=== PATIENT | female | born 1995 | race African-American/Black ===

== ENCOUNTER 2021-07-26 22:00 | Emergency (ER) | payer OTHER, SELFPAY ==
[2021-07-26 22:47] VITALS: BP 116/77; PULSE 98; RESP 15; TEMP 36.1; O2SAT 97; BMI 32.3
[2021-07-26 23:09] LABS: Strep A Nucleic Acid Negative (Negative)
--- NOTE | 2021-07-26 23:18 | ED.URI ---
HPI - URI/Sore Throat General Chief Complaint: Upper Respiratory Symptoms Stated Complaint: sore throat, sob Time Seen by Provider: 07/26/21 23:18 Source: patient Mode of arrival: ambulatory Limitations: no limitations History of Present Illness HPI Narrative: patient with sore throat yesterday but problems breathing today. Now with cough. patient is not vaccinated, no exposure that she knows of. No history of asthma. MD elicited complaint: cough and sore throat Onset (ago): day(s) Consistency: constant Severity: mild Able to tolerate fluids by mouth: Yes Exacerbating factors: nothing Relieving factors: nothing Related Data Allergies Allergy/AdvReac Type Severity Reaction Status Date / Time No Known Allergies Allergy Unverified 06/30/20 17:44 Review of Systems Constitutional: Constitutional: Reports no additional constitutional complaints Eyes: Eyes: Reports no additional eye complaints ENT: Denies dizziness Cardiovascular: Cardiovascular: Reports no additional cardiovascular complaints Respiratory: Respiratory: Reports as per HPI Gastrointestinal: Gastrointestinal: Reports no additional gastrointestinal complaints Genitourinary: Genitourinary: Reports no additional female genitourinary complaints Musculoskeletal: Musculoskeletal: Reports no additional musculoskeletal complaints Integumentary/Breasts: Skin/Breast: Denies rash Neurologic: Reports system reviewed and no additional complaints, except as documented, Denies dizziness and Denies Sensory deficit (Neuro) Psychiatric: Psychiatric: Denies anxiety PMFSH Past Medical History Medical History No known health problems Surgical History No history of previous surgery Social History Social History Advance Directives: No Patient : No Physical Exam Vital Signs: Vital Signs: Last Vital Signs Temp 97 F 07/26/21 22:47 Pulse 98 07/26/21 22:47 Resp 15 07/26/21 22:47 BP 116/77 07/26/21 22:47 Pulse Ox 97 07/26/21 22:47 Body Mass Index 32.3 Const: General: healthy appearing Nutritional Appearance: average body habitus Orientation/consciousness: oriented to person and patient oriented x3 Limitations: no limitations HENMT: Other: TMs normal, pharynx with slight erythema, no exudates Head: Yes normal to inspection Ears: external ears normal General nose exam: Normal external nose present Mouth: Normal oral and palatal mucosa present Throat: Yes posterior oropharynx normal Eyes: General: appearance normal, both eyes and all related structures Neck: Other: supple Neck: Yes normal visual inspection Chest: Chest palpation & inspection: normal inspection of the chest Resp: Auscultation: clear to auscultation bilaterally Cardio: Jugular venous distension: no JVD Rate: regular rate Rhythm: regular rhythm Heart sounds: S1 normal heart sound present and S2 normal heart sound present GI: Inspection: Yes normal to inspection Palpation (GI): Soft to palpation, nontender and No hepatosplenomegaly present Auscultation: normal bowel sounds : General: Yes no CVA tenderness Back/Spine/Pelvis: Back: no CVA tenderness Skin: General skin exam: no rashes or lesions noted Neuro: General: oriented to person and patient oriented x3 Cranial nerves: Yes CN's II-XII intact bilaterally Motor exam (neuro): 5/5 motor strength present throughout Sensory Exam: No Sensory deficit (Neuro) Extrem: General: Yes normal to inspection Psych: Appearance: grossly normal Course Reevaluation(s) Reevaluation #1: patient well appearing, has a cough and URI, COVID negative for now, rapid strep negative will dc home Time: 00:02 MDM - URI/Sore Throat Lab Data Labs: Lab Results 07/26/21 07/26/21 Range/Units 22:58 22:58 COVID-19 (JOHN) Negative (Negative) COVID-19 Clin Com See Note S. pyogenes GrpA DARWIN Negative (Negative) Discharge Plan Discharge Clinical Impression: Upper respiratory infection Qualifiers: URI type: unspecified viral URI Qualified Code(s): J06.9 - Acute upper respiratory infection, unspecified Patient Disposition: Home, Self-Care Instructions: Upper Respiratory Infection (ED), Viral Syndrome (ED) Referrals: Regi Jackson [Emergency Nurse] - 5 days
[2021-07-26 23:23] LABS: COVID-19 Test Negative (Negative); IDNOW Serial# 9DD0AD1C
== END 2021-07-27 00:27 | disposition home or self-care (01) ==
PROVIDERS: Emergency Provider Emergency Medicine
DX: J06.9 Acute upper respiratory infection, unspecified (principal); Z20.822 Contact with and (suspected) exposure to COVID-19
CPT/HCPCS: 36415; 87635; 87651; 99283

== ENCOUNTER 2023-01-03 20:28 | Emergency (ER) | payer OTHER, SELFPAY ==
--- NOTE | ~2023-01-03 | XR_ITS ---
EXAMINATION: XR CHEST CLINICAL INFORMATION: Overdose COMPARISON: None available. TECHNIQUE: Frontal view of the chest was obtained. FINDINGS: No significant abnormality is noted involving the heart, lungs, mediastinum, bony thorax or soft tissues. XR/XR chest 1V IMPRESSION: Unremarkable examination.
[2023-01-03 20:38] VITALS: BP 130/86; PULSE 90; O2SAT 100; BMI 33.9
[2023-01-03 20:40] VITALS: BP 110/78; PULSE 78; RESP 16; TEMP 37.1; O2SAT 98
--- NOTE | 2023-01-03 20:57 | ECG_ITS ---
Test Reason : OVERDOSED Blood Pressure : / mmHG Vent. Rate : 076 BPM Atrial Rate : 076 BPM P-R Int : 134 ms QRS Dur : 084 ms QT Int : 372 ms P-R-T Axes : 002 052 043 degrees QTc Int : 418 ms Normal sinus rhythm Normal ECG No previous ECGs available Referred By: Maria A Morrow Electronically Signed By:JALEN JENKINS MD
[2023-01-03 20:59] LABS: MANUAL DIFF FLAG NO
[2023-01-03 21:00] LABS: Basophils Absolute Auto 0.1 X10*3/uL (0.0-0.2); Basophils Percent Auto 1.4 % (0-2); Eosinophils Absolute Auto 0.1 X10*3/uL (0.0-0.4); Eosinophils Percent Auto 2.1 % (0-4); Hematocrit 42.7 % (37.0-47.0); Imm Gran Abs Auto 0.02 X10*3/uL (0.00-0.03); Imm Gran Pct Auto 0.3 % (0.0-0.4); Lymphocytes Absolute Auto 1.6 X10*3/uL (1.2-4.9); Lymphocytes Percent Auto 24.7 % (20-40); Mean Corpuscular HGB Conc 32.8 g/dl (31.0-35.0); Mean Corpuscular Volume 82.3 fL (80.0-98.0); Mean Platelet Volume 10.7 fL (9.4-12.3); Monocytes Absolute Auto 0.4 X10*3/uL (0.1-1.2); Monocytes Percent Auto 6.7 % (2-11); Neutrophils Absolute Auto 4.3 x10*3/uL (2.0-8.3); Neutrophils Percent Auto 64.8 % (45-73); Platelet Count 247 X10*3/uL (160-400); Red Blood Count 5.19 X10*6/uL (4.20-5.50); Red Cell Distribution Width 14.1 % (11.0-16.0); White Blood Count 6.6 X10*3/uL (4.8-10.8)
--- NOTE | 2023-01-03 21:03 | ED.OVERDOSE ---
HPI - Overdose General Chief Complaint: Overdose <Maria A Morrow NP - Last Filed: 01/04/23 03:05> Stated Complaint: SI Consumed 25 Advil's <Maria A Morrow NP - Last Filed: 01/04/23 03:05> Time Seen by Provider: 01/03/23 20:54 <Maria A Morrow NP - Last Filed: 01/04/23 03:05> Source: patient and EMS <Maria A Morrow NP - Last Filed: 01/04/23 03:05> Mode of arrival: EMS <Maria A Morrow NP - Last Filed: 01/04/23 03:05> Limitations: no limitations <Maria A Morrow NP - Last Filed: 01/04/23 03:05> History of Present Illness HPI Narrative: 27-year-old female presents via EMS for intentional Motrin overdose. Patient states that she took 24 tablets of Advil. <Maria A Morrow NP - Last Filed: 01/04/23 03:05> MD complaint: intentional overdose <Maria A Morrow NP - Last Filed: 01/04/23 03:05> Onset (ago): hour(s) (30 minutes prior to arrival) <Maria A Morrow NP - Last Filed: 01/04/23 03:05> Intent: suicide attempt <Maria A Morrow NP - Last Filed: 01/04/23 03:05> How Overdose Was Discovered: called 911 <Maria A Morrow NP - Last Filed: 01/04/23 03:05> Context: Intentional Overdose: relationship problems and other ( depression) <Maria A Morrow NP - Last Filed: 01/04/23 03:05> Associated symptoms: depression <Maria A Morrow NP - Last Filed: 01/04/23 03:05> Treatments Prior to Arrival: none <Maria A Morrow NP - Last Filed: 01/04/23 03:05> Related Data Home Medications: Previous Rx's Medication Instructions Recorded oxcarbazepine 300 mg tablet 300 mg PO BID #60 tabs 01/04/23 (Trileptal) propranolol 10 mg tablet 10 mg PO TID #45 tabs 01/04/23 <Maria A Morrow NP - Last Filed: 01/04/23 03:05> Allergies/Adverse Reactions: Allergies Allergy/AdvReac Type Severity Reaction Status Date / Time No Known Allergies Allergy Unverified 06/30/20 17:44 <Maria A Morrow NP - Last Filed: 01/04/23 03:05> Review of Systems Review of Systems: Constitutional: No Fever, No Chills Cardiovascular: No Chest Pain, No SOB Respiratory: No Cough, No Dyspnea Gastrointestinal: No Nausea, No Vomiting, No Diarrhea, positive abdominal Pain Genitourinary: No Dysuria, No Hematuria Musculoskeletal: No joint pain, No Myalgias, No Joint Swelling Skin: No Skin lacerations, No rash Neuro: No Weakness, No Numbness, No Paresthesias, No Loss of Consciousness, No Dizziness, No Headache Psych: Positive Anxiety positive SI, positive suicidal attempt, positive Depression <Maria A Morrow NP - Last Filed: 01/04/23 03:05> Yes all other systems are reviewed and are negative <Maria A Morrow NP - Last Filed: 01/04/23 03:05> [facility] Past Medical History Attestation statement: The following information was validated with the patient. <Maria A Morrow NP - Last Filed: 01/04/23 03:05> Source: old records reviewed <Maria A Morrow NP - Last Filed: 01/04/23 03:05> Medical History: Medical History No known health problems <Maria A Morrow NP - Last Filed: 01/04/23 03:05> Surgical History: Surgical History No history of previous surgery <Maria A Morrow NP - Last Filed: 01/04/23 03:05> Social History Social History: Social History Alcohol intake: never Smoked in Last 30 Days: Yes Use of substances other than those prescribed or required for medical reasons: Yes Substance Use Type: Marijuana Advance Directives: No Advance Directives Information Provided: No Healthcare Proxy: No Guardian: No Patient : No <Maria A Morrow NP - Last Filed: 01/04/23 03:05> Physical Exam Vital Signs: Vital Signs: Last Vital Signs Temp 97.7 F 01/04/23 14:11 Pulse 74 01/04/23 14:11 Resp 16 01/04/23 14:11 BP 117/84 01/04/23 14:11 Pulse Ox 99 01/04/23 14:11 O2 Del Method Room Air 01/04/23 14:11 BMI result Body Mass Index 33.9 <Maria A Morrow NP - Last Filed: 01/04/23 03:05> Vital Signs: Last Vital Signs Temp 97.7 F 01/04/23 14:11 Pulse 74 01/04/23 14:11 Resp 16 01/04/23 14:11 BP 117/84 01/04/23 14:11 Pulse Ox 99 01/04/23 14:11 O2 Del Method Room Air 01/04/23 14:11 BMI result Body Mass Index 33.9 <Natalee Burns MD - Last Filed: 01/04/23 17:58> Appearance: Alert. Oriented X3. Moderate emotional distress. Eyes: Pupils equal, round and reactive to light. Sclera nonicteric. ENT: Pharynx normal. Neck: Normal inspection. Neck supple. CVS: Normal heart rate and rhythm. Pulses normal. Respiratory: No respiratory distress. Breath sounds normal. Abdomen: Soft and nontender. Skin: Skin warm and dry. Normal skin color. Normal skin turgor. Extremities: Gait well balanced well coordinated. Neuro: No motor deficit. No sensory deficit cranial nerves 2-12 intact. <Maria A Morrow NP - Last Filed: 01/04/23 03:05> Course Course Course Narrative: 27-year-old female presents via EMS for ingesting 24 tablets of 200 mg of Advil. Patient states this is suicide attempt as she is suffering from depression, has had significant relationship problems, and unable to deal with the stressors of her life at this time. Patient will not get into detail and is in emotional distress. At this time considering that patient's ingestion was less than 30 minutes prior to arrival, plan is for charcoal, Pepcid, IV fluids, one-to-one monitoring, and guidance from poison Control. 23:00 patient alert oriented x4, answering questions politely and appropriately, patient vomiting from activated charcoal ingestion. Midnight patient continues to be alert oriented x4, even unlabored respirations. Patient will be medically cleared after repeat lab draws 00:45 Labs are unremarkable, positive for marijuana. Vital signs are stable and within normal limits, even unlabored respirations. Patient is alert oriented x4, answering questions appropriately. Patient medically cleared, transported to the pod. 02:18 patient is a Section 12 bed search, crisis consult complete. Physician observation at this time <Maria A Morrow NP - Last Filed: 01/04/23 03:05> Reevaluation(s) Reevaluation #1: Continue physician observation, no acute events overnight, no medications to reconcile, patient is a Section 12 inpatient bed search. <Natalee Burns MD - Last Filed: 01/04/23 17:58> Time: 06:41 <Natalee Burns MD - Last Filed: 01/04/23 17:58> Reevaluation #2: 1645: I was informed by the nursing staff earlier that psychiatry had evaluated the patient and informed the patient that she would be able to be discharged today. I informed the nursing staff as well as Psychiatry that I do not agree with this assessment given the labile behavior of the patient when she was screaming and banging on the door just prior to the evaluation by Psychiatry. I certainly agree with initiating medication for the patient but I am concerned that 1 of the primary support systems mentioned by Psychiatry, the patient's mother, was the trigger for the behavioral outburst earlier. In addition, patient has had remote history of suicide attempt, and was seen here today for intentional overdose. The psychiatry team was generous enough to discuss the case further with me and they do agree with the concerns that I mentioned and also discussed with them my concerns regarding open discourse regarding disposition plans. At this time, Dr. Patrick has offered to put in place additional check systems and does feel that this patient is a safe discharge and has said that he will write a note further endorsing the discharge of this patient and at this time I a.m. in agreement with the proposed discharge. Additional phone calls over the weekend are being arranged for and there is PHP set up, according to Psychiatry the mother has stated that she will offer more support to the patient as she is currently overwhelmed with caring for her 2-year-old. <Natalee Burns MD - Last Filed: 01/04/23 17:58> Time: 17:48 <Natalee Burns MD - Last Filed: 01/04/23 17:58> Medications Administered Generic Name Dose Route Start Last Admin Trade Name Reddq PRN Reason Stop Dose Admin Oxcarbazepine 300 mg 01/04/23 12:55 01/04/23 14:09 Oxcarbazepine 300 Mg Tablet PO 300 mg BID MCKENNA Administration Propranolol HCl 10 mg 01/04/23 12:55 01/04/23 14:09 Propranolol Hcl 10 Mg Tablet PO 10 mg TID MCKENNA Administration Protocol Discontinued Medications Generic Name Dose Route Start Last Admin Trade Name Reddq PRN Reason Stop Dose Admin Charcoal 25 gm 01/03/23 20:57 01/03/23 21:14 Activated Charcoal 25 Gm/120 Ml Oral.Susp PO 01/03/23 20:58 25 gm ONCE ONE Administration Diphenhydramine HCl 50 mg 01/04/23 11:24 01/04/23 12:11 Diphenhydramine Hcl 50 Mg/Ml Vial IM 01/04/23 11:25 Not Given ONCE ONE Haloperidol Lactate 5 mg 01/04/23 11:24 01/04/23 12:11 Haloperidol Lactate 5 Mg/Ml Vial IM 01/04/23 11:25 Not Given ONCE ONE Sodium Chloride 1,000 mls @ 999 mls/hr 01/03/23 21:00 01/03/23 22:27 Ns IVCONT 01/03/23 22:00 Infused .Q1H1M MCKENNA Infusion Lorazepam 2 mg 01/04/23 02:27 01/04/23 02:35 Lorazepam 1 Mg Tablet PO 01/04/23 02:28 2 mg ONCE ONE Administration Lorazepam 2 mg 01/04/23 11:23 01/04/23 12:24 Lorazepam 1 Mg Tablet PO 01/04/23 11:24 Not Given ONCE ONE Lorazepam 2 mg 01/04/23 11:24 01/04/23 12:11 Lorazepam 2 Mg/Ml Vial IM 01/04/23 11:25 Not Given ONCE ONE Pantoprazole Sodium 40 mg 01/03/23 21:04 01/03/23 21:22 Pantoprazole Sodium 40 Mg/10 Ml Vial IVPUSH 01/03/23 21:05 40 mg ONCE ONE Administration <Maria A Morrow NP - Last Filed: 01/04/23 03:05> Medications Administered Generic Name Dose Route Start Last Admin Trade Name Karan PRN Reason Stop Dose Admin Oxcarbazepine 300 mg 01/04/23 12:55 01/04/23 14:09 Oxcarbazepine 300 Mg Tablet PO 300 mg BID MCKENNA Administration Propranolol HCl 10 mg 01/04/23 12:55 01/04/23 14:09 Propranolol Hcl 10 Mg Tablet PO 10 mg TID MCKENNA Administration Protocol Discontinued Medications Generic Name Dose Route Start Last Admin Trade Name Karan PRN Reason Stop Dose Admin Charcoal 25 gm 01/03/23 20:57 01/03/23 21:14 Activated Charcoal 25 Gm/120 Ml Oral.Susp PO 01/03/23 20:58 25 gm ONCE ONE Administration Diphenhydramine HCl 50 mg 01/04/23 11:24 01/04/23 12:11 Diphenhydramine Hcl 50 Mg/Ml Vial IM 01/04/23 11:25 Not Given ONCE ONE Haloperidol Lactate 5 mg 01/04/23 11:24 01/04/23 12:11 Haloperidol Lactate 5 Mg/Ml Vial IM 01/04/23 11:25 Not Given ONCE ONE Sodium Chloride 1,000 mls @ 999 mls/hr 01/03/23 21:00 01/03/23 22:27 Ns IVCONT 01/03/23 22:00 Infused .Q1H1M MCKENNA Infusion Lorazepam 2 mg 01/04/23 02:27 01/04/23 02:35 Lorazepam 1 Mg Tablet PO 01/04/23 02:28 2 mg ONCE ONE Administration Lorazepam 2 mg 01/04/23 11:23 01/04/23 12:24 Lorazepam 1 Mg Tablet PO 01/04/23 11:24 Not Given ONCE ONE Lorazepam 2 mg 01/04/23 11:24 01/04/23 12:11 Lorazepam 2 Mg/Ml Vial IM 01/04/23 11:25 Not Given ONCE ONE Pantoprazole Sodium 40 mg 01/03/23 21:04 01/03/23 21:22 Pantoprazole Sodium 40 Mg/10 Ml Vial IVPUSH 01/03/23 21:05 40 mg ONCE ONE Administration <Natalee Burns MD - Last Filed: 01/04/23 17:58> Medical Decision Making Differential Diagnosis Differential Diagnoses: The differential diagnosis associated with the presentation includes <Maria A Morrow NP - Last Filed: 01/04/23 03:05> Overdose suicidal attempt, depression, depression <Maria A Morrow NP - Last Filed: 01/04/23 03:05> Admission/Observation Consideration of admission/observation: Escalation of care including admission/observation considered <Maria A Morrow NP - Last Filed: 01/04/23 03:05> Patient will require admission <Maria A Morrow NP - Last Filed: 01/04/23 03:05> Consult Healthcare Provider Management of the patient was discussed with: Behavioral Health Provider <Maria A Morrow NP - Last Filed: 01/04/23 03:05> Lab Data MDM Lab Attestation statement: I reviewed the patient's lab results. <Maria A Morrow NP - Last Filed: 01/04/23 03:05> Result Diagrams: 01/03/23 20:54 01/03/23 20:54 <Maria A Morrow NP - Last Filed: 01/04/23 03:05> Labs: Lab Results 01/03/23 01/03/23 01/03/23 Range/Units 20:54 20:54 21:12 WBC 6.6 6.9 (4.8-10.8) X10*3/uL RBC 5.19 5.29 (4.20-5.50) X10*6/uL Hgb 14.0 14.3 (12.0-16.0) g/dl Hct 42.7 43.3 (37.0-47.0) % MCV 82.3 81.9 (80.0-98.0) fL MCH 27.0 27.0 (27.0-33.0) pg MCHC 32.8 33.0 (31.0-35.0) g/dl RDW 14.1 14.2 (11.0-16.0) % Plt Count 247 269 (160-400) X10*3/uL MPV 10.7 11.2 (9.4-12.3) fL Immature Gran % (Auto) 0.3 0.1 (0.0-0.4) % Neut % (Auto) 64.8 65.1 (45-73) % Lymph % (Auto) 24.7 24.9 (20-40) % [place] % (Auto) 6.7 6.0 (2-11) % Eos % (Auto) 2.1 2.2 (0-4) % Baso % (Auto) 1.4 1.7 (0-2) % Lymph # (Auto) 1.6 1.7 (1.2-4.9) X10*3/uL [place] # (Auto) 0.4 0.4 (0.1-1.2) X10*3/uL Eos # (Auto) 0.1 0.2 (0.0-0.4) X10*3/uL Baso # (Auto) 0.1 0.1 (0.0-0.2) X10*3/uL Abs Immat Gran (auto) 0.02 0.01 (0.00-0.03) X10*3/uL Absolute Neuts (auto) 4.3 4.5 (2.0-8.3) x10*3/uL Absolute Nucleated RBC 0.000 0.000 (0.0-0.012) X10*3/uL Nucleated RBC % (auto) 0.0 0.0 (0.0-0.2) /100WBC PT (10.0-13.1) SEC INR (0.9-1.1) Sodium 141 (135-145) mmol/L Potassium 3.9 (3.3-5.1) mmol/L Chloride 109 H (96-108) mmol/L Carbon Dioxide 22 (22-29) mmol/L Anion Gap 14 (12-20) BUN 10 (9-16) mg/dL Creatinine 0.87 (0.5-1.4) mg/dL Estim Creat Clear Calc 114.9 Estimated GFR > 60 Random Glucose (60-115) mg/dL Fasting Glucose 98 (60-99) mg/dL Calcium 9.1 (8.4-10.2) mg/dL Magnesium (1.6-2.6) mg/dL Total Bilirubin 0.3 (0.0-1.0) mg/dL Direct Bilirubin (0.0-0.5) mg/dL AST 18 (5-31) U/L ALT 11 (0-31) U/L Alkaline Phosphatase 62 (39-117) U/L Troponin I High Sens (<3.5-17.0) ng/L Total Protein 6.7 (6.5-8.0) g/dL Albumin 4.4 (3.5-5.0) g/dL Lipase (8-78) U/L Urine Color Urine Appearance Urine pH (5.0-9.0) Ur Specific [place] (1.005-1.025) Urine Protein (Neg-Trace) mg/dL Urine Glucose (UA) (Negative) mg/dL Urine Ketones (Negative) mg/dL Urine Blood (Negative) Urine Nitrite (Negative) Ur Leukocyte Esterase (Negative) Urine RBC (0-2) /HPF Urine WBC (0-5) /HPF Ur Squamous Epith Cells (0-2) /HPF Urine Bacteria (None Seen) Hyaline Casts (0-2) /LPF Urine Test (NEGATIVE) Salicylates (15-30) mg/dL Urine Opiates Screen (Not Detect) Urine Fentanyl Screen (Not Detect) Acetaminophen < 17 (<30) mcg/mL Ur Barbiturates Screen (Not Detect) Ur Phencyclidine Scrn (Not Detect) Ur Amphetamines Screen (Not Detect) U Benzodiazepines Scrn (Not Detect) Urine Cocaine Screen (Not Detect) U Marijuana (THC) Screen (Not Detect) Ethyl Alcohol mg/dL Influenza Type A (PCR) (Negative) Influenza Type B (PCR) (Negative) RSV RNA Qual (PCR) (Negative) SARS-CoV-2 RNA (RT-PCR) (Negative) 01/03/23 01/03/23 01/03/23 Range/Units 21:12 21:12 21:12 WBC (4.8-10.8) X10*3/uL RBC (4.20-5.50) X10*6/uL Hgb (12.0-16.0) g/dl Hct (37.0-47.0) % MCV (80.0-98.0) fL MCH (27.0-33.0) pg MCHC (31.0-35.0) g/dl RDW (11.0-16.0) % Plt Count (160-400) X10*3/uL MPV (9.4-12.3) fL Immature Gran % (Auto) (0.0-0.4) % Neut % (Auto) (45-73) % Lymph % (Auto) (20-40) % [place] % (Auto) (2-11) % Eos % (Auto) (0-4) % Baso % (Auto) (0-2) % Lymph # (Auto) (1.2-4.9) X10*3/uL [place] # (Auto) (0.1-1.2) X10*3/uL Eos # (Auto) (0.0-0.4) X10*3/uL Baso # (Auto) (0.0-0.2) X10*3/uL Abs Immat Gran (auto) (0.00-0.03) X10*3/uL Absolute Neuts (auto) (2.0-8.3) x10*3/uL Absolute Nucleated RBC (0.0-0.012) X10*3/uL Nucleated RBC % (auto) (0.0-0.2) /100WBC PT 11.4 (10.0-13.1) SEC INR 1.0 (0.9-1.1) Sodium 141 (135-145) mmol/L Potassium 4.0 (3.3-5.1) mmol/L Chloride 108 (96-108) mmol/L Carbon Dioxide 23 (22-29) mmol/L Anion Gap 14 (12-20) BUN 10 (9-16) mg/dL Creatinine 0.90 (0.5-1.4) mg/dL Estim Creat Clear Calc 111.1 Estimated GFR > 60 Random Glucose 92 (60-115) mg/dL Fasting Glucose (60-99) mg/dL Calcium 9.2 (8.4-10.2) mg/dL Magnesium 2.0 (1.6-2.6) mg/dL Total Bilirubin 0.3 (0.0-1.0) mg/dL Direct Bilirubin < 0.2 (0.0-0.5) mg/dL AST 17 (5-31) U/L ALT 11 (0-31) U/L Alkaline Phosphatase 64 (39-117) U/L Troponin I High Sens < 3.5 (<3.5-17.0) ng/L Total Protein 6.8 (6.5-8.0) g/dL Albumin 4.5 (3.5-5.0) g/dL Lipase 57 (8-78) U/L Urine Color Urine Appearance Urine pH (5.0-9.0) Ur Specific [place] (1.005-1.025) Urine Protein (Neg-Trace) mg/dL Urine Glucose (UA) (Negative) mg/dL Urine Ketones (Negative) mg/dL Urine Blood (Negative) Urine Nitrite (Negative) Ur Leukocyte Esterase (Negative) Urine RBC (0-2) /HPF Urine WBC (0-5) /HPF Ur Squamous Epith Cells (0-2) /HPF Urine Bacteria (None Seen) Hyaline Casts (0-2) /LPF Urine Test (NEGATIVE) Salicylates < 5.0 L (15-30) mg/dL Urine Opiates Screen (Not Detect) Urine Fentanyl Screen (Not Detect) Acetaminophen < 17 (<30) mcg/mL Ur Barbiturates Screen (Not Detect) Ur Phencyclidine Scrn (Not Detect) Ur Amphetamines Screen (Not Detect) U Benzodiazepines Scrn (Not Detect) Urine Cocaine Screen (Not Detect) U Marijuana (THC) Screen (Not Detect) Ethyl Alcohol < 10 mg/dL Influenza Type A (PCR) (Negative) Influenza Type B (PCR) (Negative) RSV RNA Qual (PCR) (Negative) SARS-CoV-2 RNA (RT-PCR) (Negative) 01/03/23 01/03/23 01/03/23 Range/Units 21:12 22:46 22:46 WBC (4.8-10.8) X10*3/uL RBC (4.20-5.50) X10*6/uL Hgb (12.0-16.0) g/dl Hct (37.0-47.0) % MCV (80.0-98.0) fL MCH (27.0-33.0) pg MCHC (31.0-35.0) g/dl RDW (11.0-16.0) % Plt Count (160-400) X10*3/uL MPV (9.4-12.3) fL Immature Gran % (Auto) (0.0-0.4) % Neut % (Auto) (45-73) % Lymph % (Auto) (20-40) % [place] % (Auto) (2-11) % Eos % (Auto) (0-4) % Baso % (Auto) (0-2) % Lymph # (Auto) (1.2-4.9) X10*3/uL [place] # (Auto) (0.1-1.2) X10*3/uL Eos # (Auto) (0.0-0.4) X10*3/uL Baso # (Auto) (0.0-0.2) X10*3/uL Abs Immat Gran (auto) (0.00-0.03) X10*3/uL Absolute Neuts (auto) (2.0-8.3) x10*3/uL Absolute Nucleated RBC (0.0-0.012) X10*3/uL Nucleated RBC % (auto) (0.0-0.2) /100WBC PT (10.0-13.1) SEC INR (0.9-1.1) Sodium (135-145) mmol/L Potassium (3.3-5.1) mmol/L Chloride (96-108) mmol/L Carbon Dioxide (22-29) mmol/L Anion Gap (12-20) BUN (9-16) mg/dL Creatinine (0.5-1.4) mg/dL Estim Creat Clear Calc Estimated GFR Random Glucose (60-115) mg/dL Fasting Glucose (60-99) mg/dL Calcium (8.4-10.2) mg/dL Magnesium (1.6-2.6) mg/dL Total Bilirubin (0.0-1.0) mg/dL Direct Bilirubin (0.0-0.5) mg/dL AST (5-31) U/L ALT (0-31) U/L Alkaline Phosphatase (39-117) U/L Troponin I High Sens (<3.5-17.0) ng/L Total Protein (6.5-8.0) g/dL Albumin (3.5-5.0) g/dL Lipase (8-78) U/L Urine Color Red A Urine Appearance Clear Urine pH 6.0 (5.0-9.0) Ur Specific [place] <= 1.005 (1.005-1.025) Urine Protein Trace (Neg-Trace) mg/dL Urine Glucose (UA) Negative (Negative) mg/dL Urine Ketones Negative (Negative) mg/dL Urine Blood Large (3+) H (Negative) Urine Nitrite Negative (Negative) Ur Leukocyte Esterase Trace H (Negative) Urine RBC >20 H (0-2) /HPF Urine WBC 0-5 (0-5) /HPF Ur Squamous Epith Cells 3-5 (0-2) /HPF Urine Bacteria None Seen (None Seen) Hyaline Casts 0-2 (0-2) /LPF Urine Test (NEGATIVE) Salicylates (15-30) mg/dL Urine Opiates Screen Not Detected (Not Detect) Urine Fentanyl Screen Not Detected (Not Detect) Acetaminophen (<30) mcg/mL Ur Barbiturates Screen Not Detected (Not Detect) Ur Phencyclidine Scrn Not Detected (Not Detect) Ur Amphetamines Screen Not Detected (Not Detect) U Benzodiazepines Scrn Not Detected (Not Detect) Urine Cocaine Screen Not Detected (Not Detect) U Marijuana (THC) Screen POSITIVE H (Not Detect) Ethyl Alcohol mg/dL Influenza Type A (PCR) NEGATIVE (Negative) Influenza Type B (PCR) NEGATIVE (Negative) RSV RNA Qual (PCR) NEGATIVE (Negative) SARS-CoV-2 RNA (RT-PCR) NEGATIVE (Negative) 01/03/23 Range/Units 22:46 WBC (4.8-10.8) X10*3/uL RBC (4.20-5.50) X10*6/uL Hgb (12.0-16.0) g/dl Hct (37.0-47.0) % MCV (80.0-98.0) fL MCH (27.0-33.0) pg MCHC (31.0-35.0) g/dl RDW (11.0-16.0) % Plt Count (160-400) X10*3/uL MPV (9.4-12.3) fL Immature Gran % (Auto) (0.0-0.4) % Neut % (Auto) (45-73) % Lymph % (Auto) (20-40) % [place] % (Auto) (2-11) % Eos % (Auto) (0-4) % Baso % (Auto) (0-2) % Lymph # (Auto) (1.2-4.9) X10*3/uL [place] # (Auto) (0.1-1.2) X10*3/uL Eos # (Auto) (0.0-0.4) X10*3/uL Baso # (Auto) (0.0-0.2) X10*3/uL Abs Immat Gran (auto) (0.00-0.03) X10*3/uL Absolute Neuts (auto) (2.0-8.3) x10*3/uL Absolute Nucleated RBC (0.0-0.012) X10*3/uL Nucleated RBC % (auto) (0.0-0.2) /100WBC PT (10.0-13.1) SEC INR (0.9-1.1) Sodium (135-145) mmol/L Potassium (3.3-5.1) mmol/L Chloride (96-108) mmol/L Carbon Dioxide (22-29) mmol/L Anion Gap (12-20) BUN (9-16) mg/dL Creatinine (0.5-1.4) mg/dL Estim Creat Clear Calc Estimated GFR Random Glucose (60-115) mg/dL Fasting Glucose (60-99) mg/dL Calcium (8.4-10.2) mg/dL Magnesium (1.6-2.6) mg/dL Total Bilirubin (0.0-1.0) mg/dL Direct Bilirubin (0.0-0.5) mg/dL AST (5-31) U/L ALT (0-31) U/L Alkaline Phosphatase (39-117) U/L Troponin I High Sens (<3.5-17.0) ng/L Total Protein (6.5-8.0) g/dL Albumin (3.5-5.0) g/dL Lipase (8-78) U/L Urine Color Urine Appearance Urine pH (5.0-9.0) Ur Specific [place] (1.005-1.025) Urine Protein (Neg-Trace) mg/dL Urine Glucose (UA) (Negative) mg/dL Urine Ketones (Negative) mg/dL Urine Blood (Negative) Urine Nitrite (Negative) Ur Leukocyte Esterase (Negative) Urine RBC (0-2) /HPF Urine WBC (0-5) /HPF Ur Squamous Epith Cells (0-2) /HPF Urine Bacteria (None Seen) Hyaline Casts (0-2) /LPF Urine Test NEGATIVE (NEGATIVE) Salicylates (15-30) mg/dL Urine Opiates Screen (Not Detect) Urine Fentanyl Screen (Not Detect) Acetaminophen (<30) mcg/mL Ur Barbiturates Screen (Not Detect) Ur Phencyclidine Scrn (Not Detect) Ur Amphetamines Screen (Not Detect) U Benzodiazepines Scrn (Not Detect) Urine Cocaine Screen (Not Detect) U Marijuana (THC) Screen (Not Detect) Ethyl Alcohol mg/dL Influenza Type A (PCR) (Negative) Influenza Type B (PCR) (Negative) RSV RNA Qual (PCR) (Negative) SARS-CoV-2 RNA (RT-PCR) (Negative) <Maria A Morrow NP - Last Filed: 01/04/23 03:05> Lab Results 01/03/23 01/03/23 01/03/23 Range/Units 20:54 20:54 21:12 WBC 6.6 6.9 (4.8-10.8) X10*3/uL RBC 5.19 5.29 (4.20-5.50) X10*6/uL Hgb 14.0 14.3 (12.0-16.0) g/dl Hct 42.7 43.3 (37.0-47.0) % MCV 82.3 81.9 (80.0-98.0) fL MCH 27.0 27.0 (27.0-33.0) pg MCHC 32.8 33.0 (31.0-35.0) g/dl RDW 14.1 14.2 (11.0-16.0) % Plt Count 247 269 (160-400) X10*3/uL MPV 10.7 11.2 (9.4-12.3) fL Immature Gran % (Auto) 0.3 0.1 (0.0-0.4) % Neut % (Auto) 64.8 65.1 (45-73) % Lymph % (Auto) 24.7 24.9 (20-40) % [place] % (Auto) 6.7 6.0 (2-11) % Eos % (Auto) 2.1 2.2 (0-4) % Baso % (Auto) 1.4 1.7 (0-2) % Lymph # (Auto) 1.6 1.7 (1.2-4.9) X10*3/uL [place] # (Auto) 0.4 0.4 (0.1-1.2) X10*3/uL Eos # (Auto) 0.1 0.2 (0.0-0.4) X10*3/uL Baso # (Auto) 0.1 0.1 (0.0-0.2) X10*3/uL Abs Immat Gran (auto) 0.02 0.01 (0.00-0.03) X10*3/uL Absolute Neuts (auto) 4.3 4.5 (2.0-8.3) x10*3/uL Absolute Nucleated RBC 0.000 0.000 (0.0-0.012) X10*3/uL Nucleated RBC % (auto) 0.0 0.0 (0.0-0.2) /100WBC PT (10.0-13.1) SEC INR (0.9-1.1) Sodium 141 (135-145) mmol/L Potassium 3.9 (3.3-5.1) mmol/L Chloride 109 H (96-108) mmol/L Carbon Dioxide 22 (22-29) mmol/L Anion Gap 14 (12-20) BUN 10 (9-16) mg/dL Creatinine 0.87 (0.5-1.4) mg/dL Estim Creat Clear Calc 114.9 Estimated GFR > 60 Random Glucose (60-115) mg/dL Fasting Glucose 98 (60-99) mg/dL Calcium 9.1 (8.4-10.2) mg/dL Magnesium (1.6-2.6) mg/dL Total Bilirubin 0.3 (0.0-1.0) mg/dL Direct Bilirubin (0.0-0.5) mg/dL AST 18 (5-31) U/L ALT 11 (0-31) U/L Alkaline Phosphatase 62 (39-117) U/L Troponin I High Sens (<3.5-17.0) ng/L Total Protein 6.7 (6.5-8.0) g/dL Albumin 4.4 (3.5-5.0) g/dL Lipase (8-78) U/L Urine Color Urine Appearance Urine pH (5.0-9.0) Ur Specific [place] (1.005-1.025) Urine Protein (Neg-Trace) mg/dL Urine Glucose (UA) (Negative) mg/dL Urine Ketones (Negative) mg/dL Urine Blood (Negative) Urine Nitrite (Negative) Ur Leukocyte Esterase (Negative) Urine RBC (0-2) /HPF Urine WBC (0-5) /HPF Ur Squamous Epith Cells (0-2) /HPF Urine Bacteria (None Seen) Hyaline Casts (0-2) /LPF Urine Test (NEGATIVE) Salicylates (15-30) mg/dL Urine Opiates Screen (Not Detect) Urine Fentanyl Screen (Not Detect) Acetaminophen < 17 (<30) mcg/mL Ur Barbiturates Screen (Not Detect) Ur Phencyclidine Scrn (Not Detect) Ur Amphetamines Screen (Not Detect) U Benzodiazepines Scrn (Not Detect) Urine Cocaine Screen (Not Detect) U Marijuana (THC) Screen (Not Detect) Ethyl Alcohol mg/dL Influenza Type A (PCR) (Negative) Influenza Type B (PCR) (Negative) RSV RNA Qual (PCR) (Negative) SARS-CoV-2 RNA (RT-PCR) (Negative) 01/03/23 01/03/23 01/03/23 Range/Units 21:12 21:12 21:12 WBC (4.8-10.8) X10*3/uL RBC (4.20-5.50) X10*6/uL Hgb (12.0-16.0) g/dl Hct (37.0-47.0) % MCV (80.0-98.0) fL MCH (27.0-33.0) pg MCHC (31.0-35.0) g/dl RDW (11.0-16.0) % Plt Count (160-400) X10*3/uL MPV (9.4-12.3) fL Immature Gran % (Auto) (0.0-0.4) % Neut % (Auto) (45-73) % Lymph % (Auto) (20-40) % [place] % (Auto) (2-11) % Eos % (Auto) (0-4) % Baso % (Auto) (0-2) % Lymph # (Auto) (1.2-4.9) X10*3/uL [place] # (Auto) (0.1-1.2) X10*3/uL Eos # (Auto) (0.0-0.4) X10*3/uL Baso # (Auto) (0.0-0.2) X10*3/uL Abs Immat Gran (auto) (0.00-0.03) X10*3/uL Absolute Neuts (auto) (2.0-8.3) x10*3/uL Absolute Nucleated RBC (0.0-0.012) X10*3/uL Nucleated RBC % (auto) (0.0-0.2) /100WBC PT 11.4 (10.0-13.1) SEC INR 1.0 (0.9-1.1) Sodium 141 (135-145) mmol/L Potassium 4.0 (3.3-5.1) mmol/L Chloride 108 (96-108) mmol/L Carbon Dioxide 23 (22-29) mmol/L Anion Gap 14 (12-20) BUN 10 (9-16) mg/dL Creatinine 0.90 (0.5-1.4) mg/dL Estim Creat Clear Calc 111.1 Estimated GFR > 60 Random Glucose 92 (60-115) mg/dL Fasting Glucose (60-99) mg/dL Calcium 9.2 (8.4-10.2) mg/dL Magnesium 2.0 (1.6-2.6) mg/dL Total Bilirubin 0.3 (0.0-1.0) mg/dL Direct Bilirubin < 0.2 (0.0-0.5) mg/dL AST 17 (5-31) U/L ALT 11 (0-31) U/L Alkaline Phosphatase 64 (39-117) U/L Troponin I High Sens < 3.5 (<3.5-17.0) ng/L Total Protein 6.8 (6.5-8.0) g/dL Albumin 4.5 (3.5-5.0) g/dL Lipase 57 (8-78) U/L Urine Color Urine Appearance Urine pH (5.0-9.0) Ur Specific [place] (1.005-1.025) Urine Protein (Neg-Trace) mg/dL Urine Glucose (UA) (Negative) mg/dL Urine Ketones (Negative) mg/dL Urine Blood (Negative) Urine Nitrite (Negative) Ur Leukocyte Esterase (Negative) Urine RBC (0-2) /HPF Urine WBC (0-5) /HPF Ur Squamous Epith Cells (0-2) /HPF Urine Bacteria (None Seen) Hyaline Casts (0-2) /LPF Urine Test (NEGATIVE) Salicylates < 5.0 L (15-30) mg/dL Urine Opiates Screen (Not Detect) Urine Fentanyl Screen (Not Detect) Acetaminophen < 17 (<30) mcg/mL Ur Barbiturates Screen (Not Detect) Ur Phencyclidine Scrn (Not Detect) Ur Amphetamines Screen (Not Detect) U Benzodiazepines Scrn (Not Detect) Urine Cocaine Screen (Not Detect) U Marijuana (THC) Screen (Not Detect) Ethyl Alcohol < 10 mg/dL Influenza Type A (PCR) (Negative) Influenza Type B (PCR) (Negative) RSV RNA Qual (PCR) (Negative) SARS-CoV-2 RNA (RT-PCR) (Negative) 01/03/23 01/03/23 01/03/23 Range/Units 21:12 22:46 22:46 WBC (4.8-10.8) X10*3/uL RBC (4.20-5.50) X10*6/uL Hgb (12.0-16.0) g/dl Hct (37.0-47.0) % MCV (80.0-98.0) fL MCH (27.0-33.0) pg MCHC (31.0-35.0) g/dl RDW (11.0-16.0) % Plt Count (160-400) X10*3/uL MPV (9.4-12.3) fL Immature Gran % (Auto) (0.0-0.4) % Neut % (Auto) (45-73) % Lymph % (Auto) (20-40) % [place] % (Auto) (2-11) % Eos % (Auto) (0-4) % Baso % (Auto) (0-2) % Lymph # (Auto) (1.2-4.9) X10*3/uL [place] # (Auto) (0.1-1.2) X10*3/uL Eos # (Auto) (0.0-0.4) X10*3/uL Baso # (Auto) (0.0-0.2) X10*3/uL Abs Immat Gran (auto) (0.00-0.03) X10*3/uL Absolute Neuts (auto) (2.0-8.3) x10*3/uL Absolute Nucleated RBC (0.0-0.012) X10*3/uL Nucleated RBC % (auto) (0.0-0.2) /100WBC PT (10.0-13.1) SEC INR (0.9-1.1) Sodium (135-145) mmol/L Potassium (3.3-5.1) mmol/L Chloride (96-108) mmol/L Carbon Dioxide (22-29) mmol/L Anion Gap (12-20) BUN (9-16) mg/dL Creatinine (0.5-1.4) mg/dL Estim Creat Clear Calc Estimated GFR Random Glucose (60-115) mg/dL Fasting Glucose (60-99) mg/dL Calcium (8.4-10.2) mg/dL Magnesium (1.6-2.6) mg/dL Total Bilirubin (0.0-1.0) mg/dL Direct Bilirubin (0.0-0.5) mg/dL AST (5-31) U/L ALT (0-31) U/L Alkaline Phosphatase (39-117) U/L Troponin I High Sens (<3.5-17.0) ng/L Total Protein (6.5-8.0) g/dL Albumin (3.5-5.0) g/dL Lipase (8-78) U/L Urine Color Red A Urine Appearance Clear Urine pH 6.0 (5.0-9.0) Ur Specific [place] <= 1.005 (1.005-1.025) Urine Protein Trace (Neg-Trace) mg/dL Urine Glucose (UA) Negative (Negative) mg/dL Urine Ketones Negative (Negative) mg/dL Urine Blood Large (3+) H (Negative) Urine Nitrite Negative (Negative) Ur Leukocyte Esterase Trace H (Negative) Urine RBC >20 H (0-2) /HPF Urine WBC 0-5 (0-5) /HPF Ur Squamous Epith Cells 3-5 (0-2) /HPF Urine Bacteria None Seen (None Seen) Hyaline Casts 0-2 (0-2) /LPF Urine Test (NEGATIVE) Salicylates (15-30) mg/dL Urine Opiates Screen Not Detected (Not Detect) Urine Fentanyl Screen Not Detected (Not Detect) Acetaminophen (<30) mcg/mL Ur Barbiturates Screen Not Detected (Not Detect) Ur Phencyclidine Scrn Not Detected (Not Detect) Ur Amphetamines Screen Not Detected (Not Detect) U Benzodiazepines Scrn Not Detected (Not Detect) Urine Cocaine Screen Not Detected (Not Detect) U Marijuana (THC) Screen POSITIVE H (Not Detect) Ethyl Alcohol mg/dL Influenza Type A (PCR) NEGATIVE (Negative) Influenza Type B (PCR) NEGATIVE (Negative) RSV RNA Qual (PCR) NEGATIVE (Negative) SARS-CoV-2 RNA (RT-PCR) NEGATIVE (Negative) 01/03/23 Range/Units 22:46 WBC (4.8-10.8) X10*3/uL RBC (4.20-5.50) X10*6/uL Hgb (12.0-16.0) g/dl Hct (37.0-47.0) % MCV (80.0-98.0) fL MCH (27.0-33.0) pg MCHC (31.0-35.0) g/dl RDW (11.0-16.0) % Plt Count (160-400) X10*3/uL MPV (9.4-12.3) fL Immature Gran % (Auto) (0.0-0.4) % Neut % (Auto) (45-73) % Lymph % (Auto) (20-40) % [place] % (Auto) (2-11) % Eos % (Auto) (0-4) % Baso % (Auto) (0-2) % Lymph # (Auto) (1.2-4.9) X10*3/uL [place] # (Auto) (0.1-1.2) X10*3/uL Eos # (Auto) (0.0-0.4) X10*3/uL Baso # (Auto) (0.0-0.2) X10*3/uL Abs Immat Gran (auto) (0.00-0.03) X10*3/uL Absolute Neuts (auto) (2.0-8.3) x10*3/uL Absolute Nucleated RBC (0.0-0.012) X10*3/uL Nucleated RBC % (auto) (0.0-0.2) /100WBC PT (10.0-13.1) SEC INR (0.9-1.1) Sodium (135-145) mmol/L Potassium (3.3-5.1) mmol/L Chloride (96-108) mmol/L Carbon Dioxide (22-29) mmol/L Anion Gap (12-20) BUN (9-16) mg/dL Creatinine (0.5-1.4) mg/dL Estim Creat Clear Calc Estimated GFR Random Glucose (60-115) mg/dL Fasting Glucose (60-99) mg/dL Calcium (8.4-10.2) mg/dL Magnesium (1.6-2.6) mg/dL Total Bilirubin (0.0-1.0) mg/dL Direct Bilirubin (0.0-0.5) mg/dL AST (5-31) U/L ALT (0-31) U/L Alkaline Phosphatase (39-117) U/L Troponin I High Sens (<3.5-17.0) ng/L Total Protein (6.5-8.0) g/dL Albumin (3.5-5.0) g/dL Lipase (8-78) U/L Urine Color Urine Appearance Urine pH (5.0-9.0) Ur Specific [place] (1.005-1.025) Urine Protein (Neg-Trace) mg/dL Urine Glucose (UA) (Negative) mg/dL Urine Ketones (Negative) mg/dL Urine Blood (Negative) Urine Nitrite (Negative) Ur Leukocyte Esterase (Negative) Urine RBC (0-2) /HPF Urine WBC (0-5) /HPF Ur Squamous Epith Cells (0-2) /HPF Urine Bacteria (None Seen) Hyaline Casts (0-2) /LPF Urine Test NEGATIVE (NEGATIVE) Salicylates (15-30) mg/dL Urine Opiates Screen (Not Detect) Urine Fentanyl Screen (Not Detect) Acetaminophen (<30) mcg/mL Ur Barbiturates Screen (Not Detect) Ur Phencyclidine Scrn (Not Detect) Ur Amphetamines Screen (Not Detect) U Benzodiazepines Scrn (Not Detect) Urine Cocaine Screen (Not Detect) U Marijuana (THC) Screen (Not Detect) Ethyl Alcohol mg/dL Influenza Type A (PCR) (Negative) Influenza Type B (PCR) (Negative) RSV RNA Qual (PCR) (Negative) SARS-CoV-2 RNA (RT-PCR) (Negative) <Natalee Burns MD - Last Filed: 01/04/23 17:58> Independent Interpretation I performed an independent interpretation of an: Plain X-Ray <Maria A Morrow NP - Last Filed: 01/04/23 03:05> Radiology Impression Discussion of test interpretation with radiology: I have reviewed the radiologist's reading. <Maria A Morrow NP - Last Filed: 01/04/23 03:05> Radiologist Impression: EXAMINATION: XR CHEST CLINICAL INFORMATION: Overdose COMPARISON: None available. TECHNIQUE: Frontal view of the chest was obtained. FINDINGS: No significant abnormality is noted involving the heart, lungs, mediastinum, bony thorax or soft tissues. XR/XR chest 1V IMPRESSION: Unremarkable examination. ? <Maria A Morrow NP - Last Filed: 01/04/23 03:05> External Record Review External record reviewed: Outpatient record and Prior outpatient labs <Maria A Morrow NP - Last Filed: 01/04/23 03:05> Social Determinants Patient?s care significantly limited by Social Determinants of Health including: Other Social Determinant of Health <Maria A Morrow NP - Last Filed: 01/04/23 03:05> Discharge Plan Discharge Clinical Impression: Motrin overdose, Suicide attempt <Maria A Morrow NP - Last Filed: 01/04/23 03:05> Patient Disposition: Home, Self-Care <Maria A Morrow NP - Last Filed: 01/04/23 03:05> Instructions: Suicide Prevention (ED), Help Prevent Suicide (ED) <Maria A Morrow NP - Last Filed: 01/04/23 03:05> Additional Instructions: 1. Please continue to take the medication that has recently been prescribed to you, this will likely help with your current feelings. 2. Do not hesitate to return to the emergency room should you feel overwhelmed, feel like you want to harm yourself. <Maria A Morrow NP - Last Filed: 01/04/23 03:05> Prescriptions: New oxcarbazepine [Trileptal] 300 mg tablet 300 mg PO BID Qty: 60 0RF propranolol 10 mg tablet 10 mg PO TID Qty: 45 0RF <Maria A Morrow NP - Last Filed: 01/04/23 03:05> Referrals: Fior Walters MD [Primary Care Provider] - <Maria A Morrow NP - Last Filed: 01/04/23 03:05> Interventions: Dillon-Suicide Risk Severity Scale Last Done: 01/04/23 16:16 <Maria A Morrow NP - Last Filed: 01/04/23 03:05>
--- NOTE | 2023-01-03 21:03 | PC.NURSE ---
Addendum entered by Kortney Ko RN 01/03/23 22:33: Poison control followed up at 22:33. No new orders at this time. Original Note: Called poison control at 21:02. Recommend draw acetaminophen, salicilates, LFTs, and provide supportive care.
--- NOTE | 2023-01-03 21:03 | MHC.EDTECH ---
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
[2023-01-03 21:16] LABS: MANUAL DIFF FLAG NO
[2023-01-03 21:19] LABS: Basophils Absolute Auto 0.1 X10*3/uL (0.0-0.2); Basophils Percent Auto 1.7 % (0-2); Eosinophils Absolute Auto 0.2 X10*3/uL (0.0-0.4); Eosinophils Percent Auto 2.2 % (0-4); Hematocrit 43.3 % (37.0-47.0); Hemoglobin 14.3 g/dl (12.0-16.0); Imm Gran Abs Auto 0.01 X10*3/uL (0.00-0.03); Imm Gran Pct Auto 0.1 % (0.0-0.4); Lymphocytes Absolute Auto 1.7 X10*3/uL (1.2-4.9); Lymphocytes Percent Auto 24.9 % (20-40); Mean Corpuscular Volume 81.9 fL (80.0-98.0); Mean Platelet Volume 11.2 fL (9.4-12.3); Monocytes Absolute Auto 0.4 X10*3/uL (0.1-1.2); Neutrophils Absolute Auto 4.5 x10*3/uL (2.0-8.3); Neutrophils Percent Auto 65.1 % (45-73); Platelet Count 269 X10*3/uL (160-400); Red Blood Count 5.29 X10*6/uL (4.20-5.50); Red Cell Distribution Width 14.2 % (11.0-16.0); White Blood Count 6.9 X10*3/uL (4.8-10.8)
[2023-01-03 21:20] LABS: Acetaminophen LAB < 17 mcg/mL (<30); Alanine Aminotransferase 11 U/L (0-31); Albumin Level 4.4 g/dL (3.5-5.0); Alkaline Phosphatase 62 U/L (39-117); Anion Gap 14 (12-20); Aspartate Amino Transferase 18 U/L (5-31); Bilirubin Total 0.3 mg/dL (0.0-1.0); Blood Urea Nitrogen 10 mg/dL (9-16); Calcium 9.1 mg/dL (8.4-10.2); Carbon Dioxide 22 mmol/L (22-29); Chloride 109 mmol/L (96-108); Creatinine Clr Calc Pharmacy 114.9; Estimated Glomerular Filt Rate > 60; Glucose Fasting 98 mg/dL (60-99); Potassium 3.9 mmol/L (3.3-5.1); Sodium 141 mmol/L (135-145); Total Protein 6.7 g/dL (6.5-8.0)
[2023-01-03] MEDS: 0.9 % Sodium Chloride 1,000 ML 999 ML IVCONT (21:22)
[2023-01-03] MEDS: Pantoprazole Sodium 40 MG/10 ML VIAL IVPUSH (21:22)
[2023-01-03 21:26] LABS: Prothrombin Time 11.4 SEC (10.0-13.1)
[2023-01-03 21:39] LABS: Acetaminophen LAB < 17 mcg/mL (<30); Alanine Aminotransferase 11 U/L (0-31); Albumin Level 4.5 g/dL (3.5-5.0); Alkaline Phosphatase 64 U/L (39-117); Anion Gap 14 (12-20); Aspartate Amino Transferase 17 U/L (5-31); Bilirubin Direct < 0.2 mg/dL (0.0-0.5); Bilirubin Total 0.3 mg/dL (0.0-1.0); Blood Urea Nitrogen 10 mg/dL (9-16); Calcium 9.2 mg/dL (8.4-10.2); Carbon Dioxide 23 mmol/L (22-29); Chloride 108 mmol/L (96-108); Creatinine Clr Calc Pharmacy 111.1; Estimated Glomerular Filt Rate > 60; Glucose Random 92 mg/dL (60-115); Lipase 57 U/L (8-78); Salicylate < 5.0 mg/dL (15-30); Sodium 141 mmol/L (135-145); Total Protein 6.8 g/dL (6.5-8.0); Troponin-I High Sensitivity < 3.5 ng/L (<3.5-17.0)
[2023-01-03 21:54] LABS: Influenza A PCR NEGATIVE (Negative); Influenza B PCR NEGATIVE (Negative); Resp Syncy Virus RNA Qual PCR NEGATIVE (Negative); SARS COV2 PCR INHOUSE NEGATIVE (Negative)
[2023-01-03 21:58] VITALS: BP 112/70; PULSE 75; RESP 15; TEMP 37.2; O2SAT 99
[2023-01-03 22:57] LABS: Appearance Urine Clear; Color Urine Red; Glucose Urine UA Negative (Negative); Leukocyte Esterase Urine Trace (Negative); Nitrite Urine Negative (Negative); Specific Gravity - Urine <= 1.005 (1.005-1.025); UMIC TRIGGER UACC YES; Urine Blood Large (3+) (Negative); Urine Ketones Negative (Negative); Urine Protein Trace mg/dL (Neg-Trace)
[2023-01-03 22:58] LABS: UPreg QC Valid YES; Urine Pregnancy NEGATIVE (NEGATIVE)
[2023-01-03 23:00] LABS: Bacteria Urine None Seen (None Seen); Hyaline Casts Urine 0-2 /LPF (0-2); RBC Urine >20 /HPF (0-2); WBC Urine 0-5 /HPF (0-5)
[2023-01-03 23:05] LABS: Amphetamine Screen Urine Not Detected (Not Detect); Barbiturates, Urine Not Detected (Not Detect); Benzodiazepines Screen Urine Not Detected (Not Detect); Cannabinoid Screen Urine POSITIVE (Not Detect); Cocaine Screen Urine Not Detected (Not Detect); Fentanyl, urine Not Detected (Not Detect); Opiate Screen Urine Not Detected (Not Detect); Phencyclidine Screen Urine Not Detected (Not Detect)
--- NOTE | 2023-01-04 00:53 | PC.NURSE ---
Patient just got transferred to ED POD from main ED, independent ambulation, medically cleared for Tylenol ingestion, care consult ordered/pending evaluation, coherent, behavior non concerning, med rec completed/currently not on any medication, 1:1 safety order changed to 15 minutes check per provider, will continue to monitor.
[2023-01-04 01:03] VITALS: BP 132/82; PULSE 64; RESP 16; TEMP 37.2; O2SAT 99
[2023-01-04 01:07] LABS: Ethanol < 10 mg/dL
[2023-01-04] MEDS: LORazepam 1 MG TABLET 2 MG PO (02:35)
--- NOTE | 2023-01-04 02:39 | PC.NURSE ---
Patient is in bed sitting, appears restless and anxious, Ativan 2 mg PO administered as ordered/pending effect, patient was assessed by care team, disposition per care team is section 12 inpatient bed search for intentional overdose, VSS, med rec completed/patient is currently not on any medication, will continue to monitor.
--- NOTE | 2023-01-04 06:43 | PC.NURSE ---
Patient went to bed late but slept through the night, Ativan 2 mg PO administered at 0235 with + effect, disposition is section 12 inpatient bed search per care team, will continue to monitor.
--- NOTE | 2023-01-04 11:12 | PC.NURSE ---
pt woke approx 11am - wearing her manuela backwards, encouraged to close front of manuela. pt compliant with this request. pt reports wanting to leave or she is going to freak out . pt pacing in room, restless. irritable. she ripped her hospital band off, punched her door frame lightly.. request made for meds PRN from Dr. Burns - awaiting orders at this time.
--- NOTE | 2023-01-04 11:41 | PC.NURSE ---
at approx 1115 pt was on the phone with her mom where the mom informed the pt that your son fell - pt hung up before hearing more about the incident. pt became aggressive, yelling, pacing through the pod. contact made with ED provider Margret for IM meds as well as PO. Security called for standby. pt began hitting the exit doors and yelling I want to get the fuck out! . attempt to de-escalate pt was unsuccessful. allowed for pt to pace, yell, as she reported medication is a trigger. this engineering technical writer offered pt PO Ativan to help her feel more calm. pt refused. pt did not meet criteria for IM injection at this time as she stopped hitting the doors and trying to get out. pt began to calm down. continues to refuse Ativan PO, pt however still making statements, If something doesn't happen in 20 minutes I'm going to need you and you and you on top of me because I'm going to freak the fuck out (you - referring to security still at standby). Catalina TYPESETTING MACHINE TENDER with pt at this time to discuss process and discussing plan for pt. pt arrears hypersexual at times, dis-robing, wearing her manuela top backwards so her breasts are exposed and making statements about sexual activity - they just want to keep giving me meds to sleep these stupid little nurses and CNAs who all just make me go to sleep so they can go in the back and suck each-others pussies . Catalina remains with pt to discuss plan. will continue to monitor.
--- NOTE | 2023-01-04 12:39 | PM.PSYCN ---
History of Present Illness Date of Service: 01/04/2023 Chief Complaint: SI Consumed 25 Advil's Reason for Consult: post suicide attempt Discussed with referring provider: Yes Sources of Information: patient interviewed, chart reviewed and crisis/core team assessment reviewed Additional Sources of Information: Mother HPI Narrative: Ms. Michel is a 27 year-old woman with hx of depresison, trauma, explosive and impulsive behaviors who was brought to [facility] after she disclosed to mother intentional OD on advil. Utox positive for cannabinoids. Pt seen in the ED. Pt presents as agitated and angry. She states she has been very overwhelmed for several months. She reports not able to work as she is easily frustrated, depressed. She reports poor sleep. She reports prior to coming to hospital she was increasingly more overwhelmed and impulsively took advil. She reports she soon regretted it and contacted her mother who called EMS. She adamantly denies suicidal ideation. She reports she is open and eager to get supports outpatient but does not want to go inpatient. She reports she is main caregiver for her son and her anxiety and worry will only increase if she is not with her son. She is willing to be referred to [facility] or Individual therapy. Collateral information gathered from mother who reports pt easily frustrated, impulsive and explosive. Mother believes this was an impulsive act but does agree with patient in that she does not think Ms. Michel wants to . Mother denied any safety concerns. Mother reports she can help with childcare if pt goes to PHP. Past Psychiatric History: Inpatient: none OP: none Past trials: sertraline, prozac Suicide attempt hx: 2010 OD. Medical Evaluation Reviewed: Yes [facility] Medical History No known health problems Surgical History No history of previous surgery Diagnostics Vital Signs (24Hr): Vital Signs - 24 hr 01/03/23 20:40 01/03/23 21:58 01/04/23 01:03 Temperature 98.8 F 98.9 F 98.9 F Pulse Rate 78 75 64 Respiratory Rate 16 15 16 Blood Pressure 110/78 112/70 132/82 Pulse Oximetry 98 99 99 Oxygen Delivery Method Room Air Room Air Room Air BMI result Body Mass Index 33.9 Labs 01/03/23 21:12 01/03/23 21:12 Labs: Laboratory Results - last 48 hr 01/03/23 01/03/23 01/03/23 20:54 20:54 21:12 WBC 6.6 6.9 RBC 5.19 5.29 Hgb 14.0 14.3 Hct 42.7 43.3 MCV 82.3 81.9 MCH 27.0 27.0 MCHC 32.8 33.0 RDW 14.1 14.2 Plt Count 247 269 MPV 10.7 11.2 Immature Gran % (Auto) 0.3 0.1 Neut % (Auto) 64.8 65.1 Lymph % (Auto) 24.7 24.9 [place] % (Auto) 6.7 6.0 Eos % (Auto) 2.1 2.2 Baso % (Auto) 1.4 1.7 Lymph # (Auto) 1.6 1.7 [place] # (Auto) 0.4 0.4 Eos # (Auto) 0.1 0.2 Baso # (Auto) 0.1 0.1 Abs Immat Gran (auto) 0.02 0.01 Absolute Neuts (auto) 4.3 4.5 Absolute Nucleated RBC 0.000 0.000 Nucleated RBC % (auto) 0.0 0.0 PT INR Sodium 141 Potassium 3.9 Chloride 109 H Carbon Dioxide 22 Anion Gap 14 BUN 10 Creatinine 0.87 Estim Creat Clear Calc 114.9 Estimated GFR > 60 Random Glucose Fasting Glucose 98 Calcium 9.1 Magnesium Total Bilirubin 0.3 Direct Bilirubin AST 18 ALT 11 Alkaline Phosphatase 62 Troponin I High Sens Total Protein 6.7 Albumin 4.4 Lipase Urine Color Urine Appearance Urine pH Ur Specific [place] Urine Protein Urine Glucose (UA) Urine Ketones Urine Blood Urine Nitrite Ur Leukocyte Esterase Urine RBC Urine WBC Ur Squamous Epith Cells Urine Bacteria Hyaline Casts Urine Test Salicylates Urine Opiates Screen Urine Fentanyl Screen Acetaminophen < 17 Ur Barbiturates Screen Ur Phencyclidine Scrn Ur Amphetamines Screen U Benzodiazepines Scrn Urine Cocaine Screen U Marijuana (THC) Screen Ethyl Alcohol Influenza Type A (PCR) Influenza Type B (PCR) RSV RNA Qual (PCR) SARS-CoV-2 RNA (RT-PCR) 01/03/23 01/03/23 01/03/23 21:12 21:12 21:12 WBC RBC Hgb Hct MCV MCH MCHC RDW Plt Count MPV Immature Gran % (Auto) Neut % (Auto) Lymph % (Auto) [place] % (Auto) Eos % (Auto) Baso % (Auto) Lymph # (Auto) [place] # (Auto) Eos # (Auto) Baso # (Auto) Abs Immat Gran (auto) Absolute Neuts (auto) Absolute Nucleated RBC Nucleated RBC % (auto) PT 11.4 INR 1.0 Sodium 141 Potassium 4.0 Chloride 108 Carbon Dioxide 23 Anion Gap 14 BUN 10 Creatinine 0.90 Estim Creat Clear Calc 111.1 Estimated GFR > 60 Random Glucose 92 Fasting Glucose Calcium 9.2 Magnesium 2.0 Total Bilirubin 0.3 Direct Bilirubin < 0.2 AST 17 ALT 11 Alkaline Phosphatase 64 Troponin I High Sens < 3.5 Total Protein 6.8 Albumin 4.5 Lipase 57 Urine Color Urine Appearance Urine pH Ur Specific [place] Urine Protein Urine Glucose (UA) Urine Ketones Urine Blood Urine Nitrite Ur Leukocyte Esterase Urine RBC Urine WBC Ur Squamous Epith Cells Urine Bacteria Hyaline Casts Urine Test Salicylates < 5.0 L Urine Opiates Screen Urine Fentanyl Screen Acetaminophen < 17 Ur Barbiturates Screen Ur Phencyclidine Scrn Ur Amphetamines Screen U Benzodiazepines Scrn Urine Cocaine Screen U Marijuana (THC) Screen Ethyl Alcohol < 10 Influenza Type A (PCR) Influenza Type B (PCR) RSV RNA Qual (PCR) SARS-CoV-2 RNA (RT-PCR) 01/03/23 01/03/23 01/03/23 21:12 22:46 22:46 WBC RBC Hgb Hct MCV MCH MCHC RDW Plt Count MPV Immature Gran % (Auto) Neut % (Auto) Lymph % (Auto) [place] % (Auto) Eos % (Auto) Baso % (Auto) Lymph # (Auto) [place] # (Auto) Eos # (Auto) Baso # (Auto) Abs Immat Gran (auto) Absolute Neuts (auto) Absolute Nucleated RBC Nucleated RBC % (auto) PT INR Sodium Potassium Chloride Carbon Dioxide Anion Gap BUN Creatinine Estim Creat Clear Calc Estimated GFR Random Glucose Fasting Glucose Calcium Magnesium Total Bilirubin Direct Bilirubin AST ALT Alkaline Phosphatase Troponin I High Sens Total Protein Albumin Lipase Urine Color Red A Urine Appearance Clear Urine pH 6.0 Ur Specific [place] <= 1.005 Urine Protein Trace Urine Glucose (UA) Negative Urine Ketones Negative Urine Blood Large (3+) H Urine Nitrite Negative Ur Leukocyte Esterase Trace H Urine RBC >20 H Urine WBC 0-5 Ur Squamous Epith Cells 3-5 Urine Bacteria None Seen Hyaline Casts 0-2 Urine Test Salicylates Urine Opiates Screen Not Detected Urine Fentanyl Screen Not Detected Acetaminophen Ur Barbiturates Screen Not Detected Ur Phencyclidine Scrn Not Detected Ur Amphetamines Screen Not Detected U Benzodiazepines Scrn Not Detected Urine Cocaine Screen Not Detected U Marijuana (THC) Screen POSITIVE H Ethyl Alcohol Influenza Type A (PCR) NEGATIVE Influenza Type B (PCR) NEGATIVE RSV RNA Qual (PCR) NEGATIVE SARS-CoV-2 RNA (RT-PCR) NEGATIVE 01/03/23 22:46 WBC RBC Hgb Hct MCV MCH MCHC RDW Plt Count MPV Immature Gran % (Auto) Neut % (Auto) Lymph % (Auto) [place] % (Auto) Eos % (Auto) Baso % (Auto) Lymph # (Auto) [place] # (Auto) Eos # (Auto) Baso # (Auto) Abs Immat Gran (auto) Absolute Neuts (auto) Absolute Nucleated RBC Nucleated RBC % (auto) PT INR Sodium Potassium Chloride Carbon Dioxide Anion Gap BUN Creatinine Estim Creat Clear Calc Estimated GFR Random Glucose Fasting Glucose Calcium Magnesium Total Bilirubin Direct Bilirubin AST ALT Alkaline Phosphatase Troponin I High Sens Total Protein Albumin Lipase Urine Color Urine Appearance Urine pH Ur Specific [place] Urine Protein Urine Glucose (UA) Urine Ketones Urine Blood Urine Nitrite Ur Leukocyte Esterase Urine RBC Urine WBC Ur Squamous Epith Cells Urine Bacteria Hyaline Casts Urine Test NEGATIVE Salicylates Urine Opiates Screen Urine Fentanyl Screen Acetaminophen Ur Barbiturates Screen Ur Phencyclidine Scrn Ur Amphetamines Screen U Benzodiazepines Scrn Urine Cocaine Screen U Marijuana (THC) Screen Ethyl Alcohol Influenza Type A (PCR) Influenza Type B (PCR) RSV RNA Qual (PCR) SARS-CoV-2 RNA (RT-PCR) Imaging Radiology Impressions: ITS Impressions Chest X-Ray 01/03/23 21:30 IMPRESSION: Unremarkable examination. Medications Allergies Allergies Allergy/AdvReac Type Severity Reaction Status Date / Time No Known Allergies Allergy Unverified 06/30/20 17:44 Assessment & Plan Assessment & Plan (1) Mood disorder: Status: Acute Code(s): F39 - Unspecified mood [affective] disorder Plan Ms. Michel is a 27 year-old woman with hx of trauma, explosive, impulsive behaviors, easily frustrated. No hx of VH/AH. No hx of grandiose delusions. Pt appears angry and overwhelmed with some insight in that she reports she gets easily angry and lashes out and feels like she has no control at times over her behaviors. She adamantly denies suicidal or homicidal ideation. Mother agrees that it was impulsive but patient quickly sought out help. Mother denies any safety concerns and agrees with plan to continue outpatient services. Pt being referred to PHP. This blog writer discussed with pt risks, benefits and alternative treatment options, pt agrees to start trileptal for impulsive, explosive behaviors. May add propanolol also for impulsivity. Outpatient can r/u Bipolar disorder. PLAN 1. No need for inpatient level of care. Pt is impulsive with low frustration tolerance but open to continue OP tx and is seeking help. She adamantly denies suicidal ideation and mother denies any safety concerns. Mother and patient agree to return to ED if suicidal or homicidal thoughts worsened 2. Will start trileptal 300mg po BID. Propanolol 10mg po TID agitation/impulsive/anxiety. Total time managing care of this patient today ____ minutes.
--- NOTE | 2023-01-04 12:46 | MHC.CARE ---
Safety Plan: If Viji feels they are going to harm themselves, call 911 and/or come to closest ED? If Viji is dysregulated at home and? family or [place]iji is unsure of what to do, call [facility]? crisis services for support over the phone, and guidance on what the next steps should be. -[facility] TALK/ .? This is a 24 hr hotline and can also be utilized for general phone support or call 198 CARE Team will provide information to outpatient Walk In providers to be connected with therapy CARE Team will provide check in call withBruce Hallman on 01/05/23 Treatment Recommendations: Viji will attend a walk in appointment to engage in therapy services Viji will continue to speak with family supports if feeling dysregulated and or overwhelmed. CARE Team will complete referral to ? Partial Hospitalization Program [phone] opt 3 -Please follow up [facility] for status of referral Contacts: [facility] Crisis Hotline -[facility] TALK/ CARE Team [phone] opt 1? at ? Should be called if there are questions about today?s assessment or recommendations. This is not a hotline and should not be used in a crisis. Please discuss/ review this safety plan with current? therapist? and family members Walk In Appts? [facility] ([employer]) [address] ?[place] [address] Saturday, Saturday, Saturday, from 8:00 AM from 6:00 PM for ALL age group(s) Saturday from 8:00 AM from 5:00 PM for ALL age group(s) We are also open the and Saturday from 9 - 1 PM. [phone] [facility], [address] ?[place] [address] Saturday, Saturday, Saturday, , Saturday from 8:00 AM from 8:00 PM for ALL age group(s) Offering behavioral he alth services, psychiatry services, and psychological services, assessments, and evaluations. [place] speaking staff. No waitlist. [place] [facility] [employer] ([facility])? Saturday though Saturday 10am-12pm?? [address] [place] [address]
--- NOTE | 2023-01-04 12:56 | MHC.CARE ---
Addendum entered by Lulú Tobin, [facility] 01/04/23 13:41: CARE Team completed collateral call with Pts mother Lorie Shen, who reported Pt throughout her life struggles to mange her emotions and history of outburst and anger. She reported that Pt has difficulty feeling trapped example being the hosptial and not being able to leave. She reported she does not have any acute safety concerns if Pt is discharged home today. She reported that she feels Pt will benefit from therapy and psychiatry. She stated she felt Pt would benefit from PHP and will assist her in getting there ect.? Original Note: Pt was assessed by the CARE Team and found IPLOC of care. Pt was not voluntary for admission and psychiatric provider Catalina Rinaldi NP found Pt to not meet criteria for an involuntary hospitalization after Pt interview and collateral contact with Pts mother.? CARE Team completed a safety plan with Pt- see medical record and Catalina Rinaldi NP psychiatric note.
[2023-01-04] MEDS: OXcarbazepine 300 MG TABLET PO (14:09)
[2023-01-04] MEDS: Propranolol HCL 10 MG TABLET PO (14:09)
[2023-01-04 14:11] VITALS: BP 117/84; PULSE 74; RESP 16; TEMP 36.5; O2SAT 99
--- NOTE | 2023-01-04 15:43 | MHC.CARE ---
[facility] [place], RAD Team to f/u on 01/07 for intake date
--- NOTE | 2023-01-04 17:34 | PC.NURSE ---
At approximately [address] Dr[address]Ted Patrick at bedside to talk with patient about staying in the hospital. Pt became irritable reporting no one is going to fucking sleep tonight, I am going to make them work . When pt exited her room following providers leaving the pod, pt stood by the exit door making statements such as I am going to steal someone's badge, or next person to come through that door I am out of here . Security and rand tacker made aware pt was standing by door to redirect foot traffic. Pt started pacing the floor, and slamming against the doors, pt able to break through the double door into security, she then broke into lost and found and stole a nip which she proceeded to take in front of staff. MD Patrick returned to floor at this time to discuss with patient that they are going to let her go home with a safety plan in place, and that the care management team would call over the weekend and check in. Patient did de-escalate at this time, she apologized for her actions stating it is triggering for her to be locked in place. Pt in agreement with plan.
--- NOTE | 2023-01-04 17:38 | MHC.CARE ---
Per Dr. Baker, pt will be discharged from the ED. CARE Team will be reaching out to offer follow up support calls over the weekend. CARE Team clinician, Armando Mac LCSW is going to review safety plan with the patient att.
--- NOTE | 2023-01-04 18:18 | MHC.CARE ---
CARE Team typed, and then reviewed a safety care plan with the pt. Pt acknowledged the safety plan and stated that she would abide by it. Pt was informed that a PHP referral would be made by the CARE Team and that she should be hearing from them early next week. Lastly, CARE Team informed the pt that the CARE Team will be calling her throughout the weekend for check-in's. Pt stated that this was fine and she looks forward to the calls. CARE Team informed Dr. Burns of these items as well.
--- NOTE | 2023-01-05 13:23 | MHC.CARE ---
Follow up call: Pt reported that she is doing well today, she had a question about one of the medications that she was prescribed because in the warnings on the pharmacy label it indicated that a missed dose could result in a seizure. This proposal lead writer explained that the medication is an anticonvulsant that is also used as a mood stabilizer, hence the seizure warning. She denied having any other questions or concerns at this time. She expressed that she is looking forward to getting started with PHP next week. CARE team will call the pt tomorrow to check in. PHP referral pending.
--- NOTE | 2023-01-06 15:18 | MHC.CARE ---
CARE Team called and checked in with the pt. She stated that everything was okay and that she wasn't worried about anything. Pt sounded good on the phone. This was the last day for a check in call. Pt was advised to call CARE Team if she needs anything in the future.
--- NOTE | 2023-01-07 08:38 | MHC.CARE ---
Spoke with Shell Augustine at [facility] that she received the referral on 01/04/23 and will be reaching out to the pt today. Daily log updated.
== END 2023-01-04 18:00 | disposition home or self-care (01) ==
PROVIDERS: Nurse Practitioner Family; Emergency Provider Emergency Medicine; PCP Internal Medicine
DX: F39 Unspecified mood [affective] disorder (principal); T39.312A Poisoning by propionic acid derivatives, intentional self-harm, initial encounter; Y92.039 Unspecified place in apartment as the place of occurrence of the external cause; F41.9 Anxiety disorder, unspecified; F32.A Depression, unspecified; F12.90 Cannabis use, unspecified, uncomplicated; Z72.89 Other problems related to lifestyle; Z63.0 Problems in relationship with spouse or partner; Z20.822 Contact with and (suspected) exposure to COVID-19; Z20.828 Contact with and (suspected) exposure to other viral communicable diseases
CPT/HCPCS: 0241U; 36415; 71045; 80048; 80053; 80076; 80143; 80179; 80307; 81001; 81025; 82077; 83690; 83735; 84484; 85025; 85610; 93005; 96361; 96374; 99285; S9485